=== PATIENT | female | born 1980 | race Caucasian/White ===

== ENCOUNTER → 2021-01-15 | Outpatient (CLI) | payer OTHER ==
[~2021-01-15] MED LIST: alprazolam PO; gabapentin PO; hydrocodone PO
[2021-01-15 16:09] LABS: MICROSCOPIC NOT IND
[2021-01-15 16:19] LABS: ANION GAP 5 mmol/L (5-15); CALCIUM 9.6 mg/dL (8.5-10.1); CHLORIDE 107 mmol/L (98-107); CREATININE 0.64 mg/dL (0.55-1.02)
[2021-01-15 16:20] LABS: BASOPHILS % (AUTO) 1 % (0-1); EOSINOPHILS % (AUTO) 3 % (1-7); LYMPHOCYTES % (AUTO) 38 % (22-44); MEAN CORPUSCULAR HEMOGLOBIN 30.1 pg (27.0-34.8); MEAN CORPUSCULAR HGB CONC 33.7 g/dL (32.4-35.8); MEAN PLATELET VOLUME 8.4 fL (7.4-10.4); MONOCYTES % (AUTO) 8 % (2-9); NEUTROPHILS % (AUTO) 51 % (42-75); PLATELET COUNT 285 x10^3/uL (130-400); RED BLOOD COUNT 4.54 x10^6/uL (3.82-5.3); RED CELL DISTRIBUTION WIDTH 12.3 % (9.6-15.2)
[2021-01-15 16:26] LABS: INTERNATIONAL NORMALIZED RATIO 0.93 (0.93-1.1)
== END | disposition home or self-care (01) ==
LOC: STAR 15:32
PROVIDERS: ATTEND Neurological Surgery
DX: Z01.818 Encounter for other preprocedural examination (principal); Z01.812 Encounter for preprocedural laboratory examination; Z01.811 Encounter for preprocedural respiratory examination; Z01.810 Encounter for preprocedural cardiovascular examination; M47.892 Other spondylosis, cervical region; M50.123 Cervical disc disorder at C6-C7 level with radiculopathy; R79.1 Abnormal coagulation profile; R82.90 Unspecified abnormal findings in urine; R94.31 Abnormal electrocardiogram [ECG] [EKG]
CPT/HCPCS: 36415; 71046; 80048; 81003; 85025; 85610; 85730; 93005

== ENCOUNTER 2021-01-21 05:46 | Inpatient (IN) | payer OTHER ==
[~2021-01-21] VITALS: Ht 157.5 cm; Wt 59.8 kg
[2021-01-21] MEDS ORDERED: EPINEPHRINE 1 MG/ML, 1ML ONE (06:08)
[2021-01-21] MEDS ORDERED: BUPIVACAINE/PF 0.5% ONE (06:08)
[2021-01-21] MEDS ORDERED: VANCOMYCIN 1,000 MG ONE (06:09)
[2021-01-21] MEDS ORDERED: FENTANYL PF 250 MCG/5ML ONE (06:14)
[2021-01-21] MEDS ORDERED: MIDAZOLAM 1 MG/ML, 2ML ONE (06:14)
[2021-01-21] MEDS ORDERED: CHLORHEXIDINE 15 ML UDC ONE (06:14)
[2021-01-21 06:19] LABS: HCG UR SG 1.036 (1.003-1.030)
[2021-01-21] MEDS ORDERED: PROPOFOL 100 ML ONE (06:20)
[2021-01-21] MEDS ORDERED: LACTATED RINGERS 1,000 ML IV SCH (06:30)
[2021-01-21] MEDS ORDERED: CHLORHEXIDINE 15 ML UDC PO ONE (06:30)
[2021-01-21] MEDS ORDERED: GENTAMICIN 80 MG/2 ML ONE (06:43)
[2021-01-21] MEDS ORDERED: ACETAMINOPHEN 325 MG TABLET PO PRN (07:00)
[2021-01-21] MEDS ORDERED: HALOPERIDOL 5 MG/ML IV PRN (07:00)
[2021-01-21] MEDS ORDERED: hydrALAzine 20 MG/ML, 1ML IV PRN (07:00)
[2021-01-21] MEDS ORDERED: OXYcodone 5 MG/5 ML ORAL.SOL UDC PO PRN (07:00)
[2021-01-21] MEDS ORDERED: MEPERIDINE/PF 25MG/0.5ML IVPush PRN (07:00)
[2021-01-21] MEDS ORDERED: morphine SULFATE 10 MG/ML, 1ML IVPush PRN (07:00)
[2021-01-21] MEDS ORDERED: HYDROmorphone 1 MG/ML, 1ML INJ IVPush PRN (07:00)
[2021-01-21] MEDS ORDERED: LABETALOL 5MG/ML, 20ML IV PRN (07:00)
[2021-01-21] MEDS ORDERED: PROMETHAZINE 25 MG/ML, 1ML IVPush PRN (07:00)
[2021-01-21] MEDS ORDERED: FENTANYL PF 100 MCG/2ML ONE ×2 (07:34→08:50)
[2021-01-21] MEDS ORDERED: BUPIVACAINE/PF-EPI 0.5% 1:200K INFIL ONE (07:39)
[2021-01-21] MEDS ORDERED: PROPOFOL 10 MG/ML, 20ML ONE (07:40)
[2021-01-21] MEDS ORDERED: NEOSTIGMINE 1 MG/ML, 10ML ONE (07:40)
[2021-01-21] MEDS ORDERED: CEFAZOLIN 1,000 MG ONE (07:40)
[2021-01-21] MEDS ORDERED: ROCURONIUM 10MG/ML,5ML ONE (07:40)
[2021-01-21] MEDS ORDERED: ONDANSETRON 2MG/ML, 2ML ONE (07:40)
[2021-01-21] MEDS ORDERED: GLYCOPYRROLATE 0.2MG/1ML, 5ML ONE (07:40)
[2021-01-21] MEDS ORDERED: DEXAMETHASONE 4 MG/ML, 1ML ONE (07:40)
[2021-01-21] MEDS ORDERED: DIPHENHYDRAMINE 50 MG CAPSULE PO PRN (08:30)
[2021-01-21] MEDS ORDERED: PROMETHAZINE 25 MG/ML, 1ML IM PRN (08:30)
[2021-01-21] MEDS ORDERED: SENNA/DOCUSATE TABLET PO PRN (08:30)
[2021-01-21] MEDS ORDERED: LABETALOL 5MG/ML, 20ML IVPush PRN (08:30)
[2021-01-21] MEDS ORDERED: PHARMACY MAY ADJ FOR RENAL FX MC PRN (08:30)
[2021-01-21] MEDS ORDERED: MAGNESIUM HYDROXIDE 8%, 30ML UDC PO PRN (08:30)
[2021-01-21] MEDS ORDERED: HYDROcodone/APAP 5/325 TABLET PO PRN (08:30)
[2021-01-21] MEDS ORDERED: HYDROcodone/APAP 10/325 MG TABLET PO PRN (08:30)
[2021-01-21] MEDS ORDERED: METHOCARBAMOL 1,000 MG in DEXTROSE 5% 100 ML IV ONE (08:30)
[2021-01-21] MEDS ORDERED: ONDANSETRON 2MG/ML, 2ML IVPush PRN (08:30)
[2021-01-21] MEDS ORDERED: CYCLOBENZAPRINE 10 MG TABLET PO PRN (08:30)
[2021-01-21] MEDS ORDERED: OXYcodone 5 MG/5 ML ORAL.SOL UDC ONE (08:50)
[2021-01-21] MEDS ORDERED: HYDROmorphone 2 MG/ML, 1ML ONE (08:50)
[2021-01-21] MEDS ORDERED: ACETAMINOPHEN 650 MG/20.3 ML UDC ONE (08:50)
[2021-01-21] MEDS: FENTANYL PF 100 MCG/2ML IV PRN ×2 (08:55→09:13)
[2021-01-21] MEDS: SODIUM CHLORIDE FLUSH 10ML SYR IVF SCH ×2 (11:00→20:35)
[2021-01-21 12:14] VITALS: BP 91/57
[2021-01-21] MEDS: OXYcodone/APAP 5/325MG TABLET PO PRN ×3 (12:30→20:33)
[2021-01-21] MEDS: NS + 20MEQ KCL 1,000 ML IV SCH (12:30)
[2021-01-21] MEDS: CEFAZOLIN PMX 1GM/50ML 50 ML IVPB SCH ×2 (16:38→23:14)
[2021-01-21 19:46] VITALS: BP 92/58
[2021-01-21] MEDS: METHOCARBAMOL 750 MG TABLET PO PRN (19:47)
[2021-01-21] MEDS: morphine SULFATE 10 MG/ML, 1ML IVPush PRN ×2 (19:48→23:09)
[2021-01-21 23:17] VITALS: BP 98/60
[2021-01-22] MEDS: OXYcodone/APAP 5/325MG TABLET PO PRN ×3 (00:55→09:52)
[2021-01-22 03:30] VITALS: BP 95/52
[2021-01-22] MEDS: METHOCARBAMOL 750 MG TABLET PO PRN (03:38)
[2021-01-22] MEDS: morphine SULFATE 10 MG/ML, 1ML IVPush PRN ×2 (03:38→07:52)
[2021-01-22 07:10] VITALS: BP 97/62
[2021-01-22] MEDS ORDERED: METH4TAB6 PO (08:50)
[2021-01-22] MEDS ORDERED: OXYC-380 PO (08:50)
[2021-01-22] MEDS ORDERED: CYCL10TA2 PO (08:50)
[2021-01-22] MEDS ORDERED: FAMO20TA7 PO (08:50)
[2021-01-22] MEDS: NS + 20MEQ KCL 1,000 ML IV SCH (09:00)
[2021-01-22] MEDS: SODIUM CHLORIDE FLUSH 10ML SYR IVF SCH (09:00)
[2021-01-22] MEDS ORDERED: FAMOTIDINE 20 MG TABLET PO SCH (09:00)
[2021-01-22] MEDS ORDERED: OXYcodone/APAP 10/325MG TABLET PO PRN (09:00)
[2021-01-22] MEDS ORDERED: MEDROL 4MG DOSEPAK PO SCH (09:00)
[2021-01-22] MEDS ORDERED: CYCLOBENZAPRINE 10 MG TABLET PO PRN (09:00)
[2021-01-22 13:14] VITALS: BP 93/61
== END 2021-01-22 13:40 | disposition home or self-care (01) | DRG 473 ==
LOC: ORIP 05:46 → 4NE 10:15
PROVIDERS: ADMIT Neurological Surgery; ATTEND Neurological Surgery
PROC: 0RB30ZZ Excision of Cervical Vertebral Disc, Open Approach (ICD-10-PCS; 2021-01-21)
PROC: 0PP304Z Removal of Internal Fixation Device from Cervical Vertebra, Open Approach (ICD-10-PCS; 2021-01-21)
PROC: 0RG1070 Fusion of Cervical Vertebral Joint with Autologous Tissue Substitute, Anterior Approach, Anterior Column, Open Approach (ICD-10-PCS; 2021-01-21)
PROC: 4A11X4G Monitoring of Peripheral Nervous Electrical Activity, Intraoperative, External Approach (ICD-10-PCS; 2021-01-21)
PROC: 0RG10A0 Fusion of Cervical Vertebral Joint with Interbody Fusion Device, Anterior Approach, Anterior Column, Open Approach (ICD-10-PCS; principal; 2021-01-21 07:00)
DX: M50.123 Cervical disc disorder at C6-C7 level with radiculopathy (principal); M47.892 Other spondylosis, cervical region; G89.29 Other chronic pain; M48.02 Spinal stenosis, cervical region
CPT/HCPCS: 72040; S0020; 81025; 95938; 95941; C1713; C1776; G0378; J0171; J0690; J1100; J2250; J2405; J2704; J2710; J3010; J3370; J3480; J7509; C1762; J1580; J2270; J2800; J7120